=== PATIENT | female | born 1955 | race Two or more races ===

== ENCOUNTER 2018-05-27 03:10 | Emergency (ER) | payer BC ==
[~2018-05-27] VITALS: Ht 162.6 cm; Wt 44.6 kg
[2018-05-27 03:47] LABS: BASOPHIL % 0.4 % (0-2); PLATELET COUNT 215 x10^3mcL (130-400); RED CELL DISTRIBUTION WIDTH 13.6 % (11.5-14.5)
[2018-05-27 03:52] LABS: CALCIUM 8.6 mg/dL (8.5-10.1); CARBON DIOXIDE 22.7 mmol/L (21-32); CHLORIDE SERUM 102 mmol/L (98-107); CREATININE SERUM 0.6 mg/dL (0.6-1.0); GFR1 > 60 mL/min; GLUCOSE SERUM 126 mg/dL (74-106); POTASSIUM SERUM 3.8 mmol/L (3.5-5.1); SODIUM SERUM 135 mmol/L (136-145)
[2018-05-27 03:59] LABS: ALBUMIN 3.5 g/dL (3.4-5.0); ALKALINE PHOSPHATASE 101 U/L (46-116); ALT/SGPT 30 U/L (14-59); AST/SGOT 25 U/L (15-37); BILIRUBIN TOTAL 0.5 mg/dL (0.20-1.00); LIPASE 98 IU/L (73-393); TOTAL PROTEIN, SERUM 7.7 g/dL (6.4-8.2)
[2018-05-27 05:39] VITALS: BP 117/84
== END 2018-05-27 05:39 | disposition home or self-care (01) ==
LOC: ED 03:10
PROVIDERS: Emergency Medicine
DX: R05 Cough (principal); R07.89 Other chest pain; R06.02 Shortness of breath
CPT/HCPCS: 36415; 83880; J7030; J7512; J7613; J7644; Q0092